=== PATIENT | female | born 1945 | race American Indian/Alaskan Native ===

== ENCOUNTER 2020-01-31 11:57 | Emergency (ER) | payer OTHER, MEDICARE ==
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
[2020-01-31 13:29] VITALS: BP 140/72
[2020-01-31] MEDS ORDERED: CYCLOBENZAPRINE 10 MG TAB PO ONE (14:01)
[2020-01-31] MEDS ORDERED: ACETAMINOPHEN 325 MG TAB PO ONE (14:01)
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
== END 2020-01-31 15:13 | disposition home or self-care (01) ==
LOC: ED 11:57
DX: M54.5 Low back pain (principal); I10 Essential (primary) hypertension; Z79.899 Other long term (current) drug therapy; V49.59XA Passenger injured in collision with other motor vehicles in traffic accident, initial encounter; Y93.89 Activity, other specified; Y92.488 Other paved roadways as the place of occurrence of the external cause; Y99.8 Other external cause status
CPT/HCPCS: 72100